=== PATIENT | female | born 1970 | race Caucasian/White ===

== ENCOUNTER 2023-05-26 00:04 | Observation (INO) | payer MEDICAID, SELFPAY ==
[2023-05-26] VITALS (20 sets, daily range): BP systolic 161–243; BP diastolic 99–122; PULSE 60–112; RESP 15–20; TEMP 36.8–37.2; O2SAT 96–99; BMI 23.4; BMI 23.9
--- NOTE | 2023-05-26 00:17 | CT_ITS ---
PROCEDURE INFORMATION: Exam: CT Abdomen And Pelvis With Contrast Exam date and time: 05/26/2023 12:54 AM Age: 53 years old Clinical indication: Abdominal pain; Additional info: Abd pain n/v TECHNIQUE: Imaging protocol: Computed tomography of the abdomen and pelvis with contrast. Radiation optimization: All CT scans at this facility use at least one of these dose optimization techniques: automated exposure control; mA and/or kV adjustment per patient size (includes targeted exams where dose is matched to clinical indication); or iterative reconstruction. Contrast material: ISOVUE; Contrast volume: 75 ml; Contrast route: IV; COMPARISON: INPATIENT PHARMACIST/O MRI-L-SPINE W/O 11/15/2016 9:51 AM FINDINGS: Liver: Geographic area of hypoattenuation in the medial segment of the left lobe of the liver compatible with focal fatty infiltration. Liver is otherwise unremarkable. Gallbladder and bile ducts: Normal. No calcified stones. No ductal dilation. Pancreas: Normal. No ductal dilation. Spleen: Normal. No splenomegaly. Adrenal glands: Normal. No mass. Kidneys and ureters: Normal. No hydronephrosis. Stomach and bowel: Unremarkable. No obstruction. No mucosal thickening. Appendix: The appendix is visualized and appears normal. Intraperitoneal space: Unremarkable. No free air. No significant fluid collection. Vasculature: Mild scattered atherosclerotic calcification of the aorta. No evidence of aneurysm or dissection. Moderate findings of pelvic venous congestion. Lymph nodes: Unremarkable. No enlarged lymph nodes. Urinary bladder: Unremarkable as visualized. Reproductive: 2.1 cm thin-walled simple right ovarian cyst compatible with a benign follicular cyst. Uterus and left ovary appear unremarkable. Bones/joints: Severe degenerative disc changes at the lumbosacral junction producing moderate narrowing of the bilateral L5 neural exit foramina. Osseous alignment is normal. No vertebral body compression or acute fracture. Soft tissues: Partially visualized bilateral breast implants. IMPRESSION: 1. No definite acute abnormality. 2. Simple appearing 2.1 cm right ovarian cyst. No further imaging is recommended. (Reference: Gil) 3. Significant degenerative changes of the lumbosacral spine References: Gil et al. Management of Incidental Adnexal Findings on CT and MRI: A White Paper of the ACR Incidental Findings Committee, J Am Cher Radiol. 2019;17(2):248-254.
--- NOTE | 2023-05-26 00:20 | ED_ITS ---
Discharge Plan Disposition Patient Disposition: Admitted Clinical Impressions Clinical Impression: Prerenal azotemia Abdominal pain Qualifiers: Abdominal location: upper abdomen, unspecified Qualified Code(s): R10.10 - Upper abdominal pain, unspecified Nausea & vomiting Qualifiers: Vomiting type: unspecified Qualified Code(s): R11.2 - Nausea with vomiting, unspecified Discharge ED Provider: Christiano Meneses Adult HPI General Chief complaint: Abdominal Pain Stated complaint: N/V Abdominal pain Time Seen by Provider: 05/26/23 00:11 Mode of Arrival: EMS Source of Information: Patient Limitations: No Limitations Description of Symptoms (Recalled from ER Triage Doc. by RN): Pt brought in via [email or web address] from home with c/o abdominal pain associated with N/V since 8am this morning. Pt last emesis episode 2 hr ago, pt states she thinks there may have been blood in it. Hx of GI bleed 10 yrs ago. Pt is hypertensive and on daily Propanolol. History of Present Illness HPI narrative: 53-year-old female with a history of high heart rate and anxiety presents to the ER with concerns of abdominal pain, nausea, vomiting since 8:00 this morning. Patient states she has vomited at least 20 times today. She is not sure if there may have been blood in it. Patient has a history of bleeding ulcers 10 years ago and states she had similar pain at that time. Patient states she does not drink alcohol but does use marijuana as recently as today which she states did slightly improve her pain. She is not having any bloody or black stools. Related Data Previous Rx's Medication Instructions Recorded hydrocodone 5 mg-acetaminophen 325 1 tab PO TID 30 days #90 tabs 06/14/17 mg tablet ([employer]) Allergies Allergy/AdvReac Type Severity Reaction Status Date / Time No Known Allergies Allergy Unverified 06/14/17 09:01 [facility] Disclaimer: The information contained in this section may have been updated after the patient was seen, as this information can be updated by other users. Medical History (Updated 05/26/23 @ 02:36 by Christiano Meneses MD) Depression Social History Smoking Status: Current every day smoker tobacco type: cigarettes packs per day: 1 alcohol intake: never substance use type: former substance user current occupational status: employed Travel in the last 8 weeks: None ROS Obtained: Yes All systems reviewed & no additional complaints except as documented Constitutional Constitutional: Denies chills, Denies fever(s), Denies headache(s) and Denies weakness Eyes Eyes: Denies change in vision ENT Ears, Nose, Mouth, and Throat: Denies dizziness, Denies headache(s), Denies nasal congestion and Denies sore throat Cardiovascular Cardiovascular: Denies chest pain, Denies dyspnea and Denies leg edema Respiratory Respiratory: Denies cough and Denies dyspnea Gastrointestinal Gastrointestingal: Reports abdominal pain, nausea and vomiting; Denies constipation or diarrhea Genitourinary Female Genitourinary: Denies dysuria Musculoskeletal Musculoskeletal: Denies arthralgias, Denies myalgias, Denies numbness and Denies tingling Integumentary/Breasts Skin/Breast: Denies change in pigmentation Neurologic Neurologic: Denies dizziness, Denies headache(s), Denies numbness, Denies tingling and Denies weakness Physical Exam General General appearance: alert and in no apparent distress Head Head exam: atraumatic and normocephalic Eye Eye exam: Present PERRL and EOMI ENT ENT exam: Present mucous membranes moist Neck Neck exam: Present normal inspection and full ROM Chest Chest inspection: Present symmetric chest wall rise Respiratory Respiratory exam: Absent respiratory distress or stridor Cardiovascular Cardiovascular exam: Present regular rate and normal rhythm Abdominal Exam Abdominal exam: Present soft and tenderness (Epigastric primarily but diffusely in the upper abdomen); Absent distention, guarding or rebound Extremities Exam Extremities exam: Present full ROM Neurological Exam Neurological exam: Present alert and oriented X3; Absent motor sensory deficit Psychiatric Psychiatric exam: Present normal affect and normal mood Skin Skin exam: Present warm and dry Medical Decision Making [place] Inquiry Pt receiving controlled substance: No Vital Signs: 05/26/23 00:04 05/26/23 02:23 05/26/23 01:00 Temperature 98.2 F Temperature Source Oral Pulse Rate 70 Pulse Rate [Left] 68 Respiratory Rate 16 18 Blood Pressure 243/100 H 239/119 H Blood Pressure [Right Arm] 189/115 H Blood Pressure Mean [Right Arm] 139 Blood Pressure Source Automatic Cuff Blood Pressure Source [Right Arm] Automatic Cuff Blood Pressure Position Sitting Blood Pressure Position [Right Arm] Sitting 02 Sat by Pulse Oximetry 99 99 Oxygen Delivery Method Room Air Room Air 05/26/23 01:15 05/26/23 01:30 05/26/23 02:00 Temperature 98.2 F Temperature Source Oral Pulse Rate 71 68 72 Pulse Rate [Left] Respiratory Rate 18 16 18 Blood Pressure 225/113 H 221/109 H 243/120 H Blood Pressure [Right Arm] Blood Pressure Mean [Right Arm] Blood Pressure Source Automatic Cuff Automatic Cuff Automatic Cuff Blood Pressure Source [Right Arm] Blood Pressure Position Sitting Sitting Sitting Blood Pressure Position [Right Arm] 02 Sat by Pulse Oximetry 98 97 98 Oxygen Delivery Method Room Air Room Air Room Air 05/26/23 02:25 Temperature Temperature Source Pulse Rate 73 Pulse Rate [Left] Respiratory Rate 15 Blood Pressure 169/101 H Blood Pressure [Right Arm] Blood Pressure Mean [Right Arm] Blood Pressure Source Automatic Cuff Blood Pressure Source [Right Arm] Blood Pressure Position Sitting Blood Pressure Position [Right Arm] 02 Sat by Pulse Oximetry 98 Oxygen Delivery Method Room Air Lab Data Lab Results 05/26/23 00:21: WBC 11.2 H, RBC 5.28, Hgb 15.5, Hct 48.0 H, MCV 91.0, MCH 29.4, MCHC 32.3, RDW 13.2, Plt Count 255, MPV 8.1, Neut % (Auto) 90.0 H, Lymph % (Auto) 7.3 L, [place] % (Auto) 1.6 L, Eos % (Auto) 0.4, Baso % (Auto) 0.8, Neut # (Auto) 10.1 H, Lymph # (Auto) 0.8, [place] # (Auto) 0.2, Eos # (Auto) 0.0, Baso # (Auto) 0.1, Total Counted 100, Neutrophils % (Manual) 89 H, Lymphocytes % (Manual) 10, Basophils % (Manual) 1.0, Platelet Estimate Normal, RBC Morphology Not Reportable, Stomatocytes 1+, PT 11.3, INR 1.05, Sodium 142, Potassium 3.5, Chloride 100, Carbon Dioxide 31 H, Anion Gap 14.5, BUN 24 H, Creatinine 1.00, Estimated Creat Clear 57, Estimated GFR 58 L, Est GFR ( Amer) 70, Glucose 176 H, Lactate 2.1, Calcium 9.8, Total Bilirubin 0.5, AST 32, ALT 28, Alkaline Phosphatase 128 H, Troponin I < 0.01, Total Protein 9.4 H, Albumin 4.7, Globulin 4.7 H, Albumin/Globulin Ratio 1.0 L, Lipase 54 05/26/23 01:10: Urine Color Yellow, Urine Appearance Clear, Urine pH 7.0, Ur Specific [place] 1.020, Urine Protein 2+, Urine Glucose (UA) Negative, Urine Ketones 2+, Urine Blood Negative, Urine Nitrate Negative, Urine Bilirubin 1+ A, Urine Urobilinogen 0.2, Ur Leukocyte Esterase Negative, Urine RBC None, Urine WBC Occasional, Ur Squamous Epith Cells Occasional, Urine Bacteria Trace, Urine Mucus Trace 05/26/23 00:21 05/26/23 00:21 Orders (Tests/Meds): ED MEDICATIONS Generic Name Dose Route Start Last Admin Trade Name Freq PRN Reason Stop Dose Admin Sodium Chloride 10 ml 05/26/23 01:00 05/26/23 01:01 Sodium Chloride 0.9% 10ml Syr (Rad Only) IV 06/25/23 00:59 10 ml NEEDED PRN Administration Maintain IV Site Sodium Chloride 10 ml 05/26/23 01:58 05/26/23 01:59 Sodium Chloride 0.9% 10ml Syr (Rad Only) IV 06/25/23 01:57 10 ml NEEDED PRN Administration Maintain IV Site Discontinued Medications Generic Name Dose Route Start Last Admin Trade Name Freq PRN Reason Stop Dose Admin Belladonna Alkaloids 60 ml 05/26/23 01:10 05/26/23 01:16 Belladonna Alkaloids 60 Ml Ml PO 05/26/23 01:11 60 ml ONCE ONE Administration Droperidol 2.5 mg 05/26/23 02:28 Droperidol 5mg/2ml Vial IV 05/26/23 02:29 ONCE ONE Hydromorphone HCl 0.5 mg 05/26/23 01:25 05/26/23 01:30 Hydromorphone 2mg/Ml Syringe IV 05/26/23 01:26 0.5 mg ONCE ONE Administration Lactated Ringer's 1,000 mls @ 999 mls/hr 05/26/23 00:17 05/26/23 00:24 Lactated Ringer's 1000 Ml Bag IV 05/26/23 01:17 999 mls/hr .Q1H1M ONE Administration Iopamidol 75 ml 05/26/23 01:00 05/26/23 01:01 Iopamidol-370 (76%);100ml Bottle IV 05/26/23 01:01 75 ml ONCE ONE Administration Iopamidol 100 ml 05/26/23 01:58 05/26/23 01:59 Iopamidol-370 (76%);100ml Bottle IV 05/26/23 01:59 100 ml ONCE ONE Administration Labetalol HCl 10 mg 05/26/23 02:18 05/26/23 02:23 Labetalol 20mg/4ml Syringe IV 05/26/23 02:19 10 mg ONCE ONE Administration Metoclopramide HCl 10 mg 05/26/23 01:23 05/26/23 01:31 Metoclopramide Hcl 10mg/2ml Vial IVP 05/26/23 01:24 10 mg ONCE ONE Administration Morphine Sulfate 4 mg 05/26/23 00:17 05/26/23 00:24 Morphine 4mg/Ml Syringe IV 05/26/23 00:18 4 mg ONCE ONE Administration Morphine Sulfate 4 mg 05/26/23 01:10 05/26/23 01:17 Morphine 4mg/Ml Syringe IV 05/26/23 01:11 4 mg ONCE ONE Administration Ondansetron HCl 4 mg 05/26/23 00:17 05/26/23 00:23 Ondansetron 4mg/2ml Vial IV 05/26/23 00:18 4 mg ONCE ONE Administration ORDERS Category Date Time Status CT abdomen pelvis w con Stat Cat Scan 05/26/23 00:[address] angio abdomen pelvis Stat Cat Scan 05/26/23 01:20 Completed CBC w/Auto Diff [Complete Blood Count Auto Diff] Stat Lab 05/26/23 00:21 Completed CMP [Comprehensive Metabolic Panel] Stat Lab 05/26/23 00:21 Completed Lactic Acid Stat Lab 05/26/23 00:21 Completed Lactic Acid Stat Lab 05/26/23 02:03 Ordered Lipase Stat Lab 05/26/23 00:21 Completed PT INR [Prothrombin Time INR] Stat Lab 05/26/23 00:21 Completed Trop I [Troponin I] Stat Lab 05/26/23 00:21 Completed Troponin I Q3H Lab 05/26/23 03:30 Ordered Troponin I Q3H Lab 05/26/23 06:30 Ordered Urinalysis and Microscopic Stat Lab 05/26/23 01:10 Completed ECG Request Stat Y 05/26/23 00:24 Ordered Medical Decision Narrative: In summary, this 53year old female presents to the emergency department today with abdominal pain, nausea, vomiting. On initial evaluation patient is hemodynamically stable, afebrile, patient has a nonacute abdomen but she does have upper abdominal tenderness, cardiopulmonary exam benign, remainder of exam benign. Differential diagnosis includes but is not limited to viral syndrome, pancreatitis, bowel obstruction, lactic acidosis, electrolyte abnormality, dehydration, urinary tract infection, atypical presentation of ACS. Based on these concerns, I ordered cardiac workup, basic labs, urine studies, CT abdomen pelvis. ECG personally interpreted demonstrates normal sinus rhythm, rate 70, normal axis, VA 206, normal QT/QTc, no STEMI. Patient received IV morphine, Zofran, fluids for treatment. Labs personally reviewed demonstrate findings of dehydration with mild prerenal azotemia, lactate borderline elevated at 2.1, no electrolyte abnormalities, patient does have elevated alkaline phosphatase but no focal right upper quadrant tenderness, normal AST and ALT, UA negative for signs of infection. Lipase normal. CT abdomen pelvis personally interpreted demonstrates no obvious obstruction, no peripancreatic fast stranding, see radiology read for final interpretation. Patient does have a right adnexal cyst which has been persistently present. She states sometimes the cyst gives her problems but it is not giving her any issues today, she does not have any complaints of pelvic pain. Shortly after returning from CT, patient continued complaining of pain and received additional morphine, given concern for possible ulcer, I administered GI cocktail. Patient promptly had projectile emesis which was bilious in color. On further questioning of the patient, she admitted to a prior history of atrial fibrillation and states she is not on any blood thinners. This does increase the risk of patient having mesenteric ischemia which I do not have high suspicion for previously because she stated she had no other medical conditions. Given concern for this, I am sending the patient back to CT scan for CT angiography. Patient is also receiving IV Dilaudid and Reglan. Patient's IV access was insufficient for CTA so I placed L bicep USGIV. See procedure note. CTA abdomen pelvis demonstrates no dissection, no obvious occlusion on my personal interpretation. See radiology read for final interpretation which is in agreement. Blood pressure increased persistently through her stay in the ED, she became significantly hypertensive so I administered IV labetalol. She responded appropriately to this. On reassessment patient continues having intractability of abdominal symptoms. She is receiving droperidol for consideration of possible cannabis hyperemesis syndrome. Ultimately, patient requires admission because of intractability of symptoms. She is amenable to this plan. I discussed this case with the hospitalist. He was concerned about the adnexal cyst, however I relayed my discussion with the patient regarding it how she does not have any pelvic pain, she has mild diffuse abdominal tenderness but primarily her symptoms are in the epigastric region and she states this pain does not feel consistent with the pain that her cyst has caused in the past nor does it originate from that area of her abdomen. Patient was accepted by the hospitalist and admitted in stable condition. Procedures Miscellaneous Procedure Procedure Performed: Procedure: Ultrasound-guided IV Indication: Need for IV access Consent: Verbal provided by patient, risks include need for repeat procedure, bleeding, infection, pain, damage to surrounding structures, benefits include additional IV access and ability to testing and provided medications. Procedure details: 20-gauge ultrasound IV placed in the left bicep. Draws and flushes. Secured with Tegaderm. Patient tolerated procedure well. No complications. Critical Care Critical Care Time Critical Care Time: No
[2023-05-26] MEDS: ONDANSETRON 4MG/2ML VIAL 4 MG IV (00:23)
[2023-05-26] MEDS: MORPHINE 4MG/ML SYRINGE 4 MG IV ×5 (00:24→19:52)
[2023-05-26] MEDS: LACTATED RINGERS 1000ML 1,000 ML 999 ML IV (00:24)
[2023-05-26 00:31] LABS: Basophils # 0.1 K/mm3 (0-0.2); Basophils % 0.8 % (0.1-2.0); Eosinophils % 0.4 % (0.1-12.0); Hemoglobin 15.5 g/dL (12.2-16.2); Lymphocytes # 0.8 K/mm3 (0.7-4.5); Lymphocytes % 7.3 % (10-50); Mean Corpuscular HGB Conc 32.3 g/dL (31.8-35.4); Mean Corpuscular Hemoglobin 29.4 pg (27.0-31.2); Mean Platelet Volume 8.1 fl (7.4-10.4); Monocytes # 0.2 K/mm3 (0.1-1.0); Monocytes % 1.6 % (1.7-9.3); Neutrophils # 10.1 K/mm3 (1.8-7.8); Platelet Count 255 K/mm3 (142-424); Red Blood Count 5.28 M/mm3 (4.20-5.40); Red Cell Distribution Width 13.2 % (11.5-17.5); White Blood Count 11.2 K/mm3 (4.8-10.8)
[2023-05-26 00:34] LABS: MANUAL DIFFERENTIAL MANUAL DIFFERENTIAL (MANUAL DIFF)
[2023-05-26 00:38] LABS: INR 1.05 (0.9-1.1); Prothrombin Time 11.3 seconds (10.1-12.5)
--- NOTE | 2023-05-26 00:39 | ECG_ITS ---
APPROVED REPORT Exam: Resting ECG HR:70 bpm ECG Measurements Heart Rate 70 AXES MT 206 P 71 QRSd 95 QRS 67 QT 408 T 67 QTc 429 Conclusion SINUS RHYTHM NORMAL ECG UNCONFIRMED REPORT Electronically signed by : Harley Sarmiento, 06/02/2023 15:45:12
[2023-05-26 00:44] LABS: Chloride 100 mmol/L (98-107); Potassium 3.5 mmoL/L (3.5-5.1); Sodium 142 mmol/L (136-145)
[2023-05-26 00:47] LABS: Alanine Aminotransferase 28 U/L (12-78); Albumin Level 4.7 g/dl (3.5-5.0); Alkaline Phosphatase 128 U/L (38-126); Anion Gap 14.5 mEq/L (5-15); Aspartate Amino Transferase 32 U/L (14-36); Bilirubin,Total 0.5 mg/dl (0.2-1.3); Blood Urea Nitrogen 24 mg/dl (7-17); Calcium 9.8 mg/dl (8.4-10.2); Carbon Dioxide 31 mmol/L (22.0-30.0); Creatinine Clearance Estimated 57 mL/min (50-200); Estimated Glomerular Filt Rate 58 ml/min (>60); GFR (African American) 70 ML/MIN (>60); Globulin 4.7 g/dL (1.3-3.2); Glucose 176 mg/dl (74-100); Lipase 54 U/L (23-300); Total Protein,Serum 9.4 g/dl (6.3-8.2)
[2023-05-26 00:48] LABS: Lactic Acid 2.1 mmol/L (0.7-2.1)
[2023-05-26] MEDS: IOPAMIDOL-370 (76%);100ML BOTTLE 75 ML IV (01:01)
[2023-05-26] MEDS: SODIUM CHLORIDE 0.9% 10ML SYR (RAD ONLY) 10 ML IV ×2 (01:01→01:59)
[2023-05-26 01:06] LABS: Troponin I < 0.01 ng/ml (0.00-0.034)
[2023-05-26 01:16] LABS: Microscopic, Urine URINE MICROSCOPIC (MICROSCOPIC)
[2023-05-26] MEDS: BELLADONNA ALKALOIDS 60 ML ML PO (01:16)
[2023-05-26 01:17] LABS: Appearance,Urine CLEAR (Clear); Blood, Urine Negative (Negative); Color,Urine YELLOW (Yellow); Glucose,Urine (UA) Negative (Negative); Ketones,Urine 2+ (Negative); Leukocyte Esterase,Urine Negative (Negative); Nitrate,Urine Negative (Negative); Protein,Urine 2+ (Negative); Urobilinogen,Urine 0.2 EU/dl (0.2)
--- NOTE | 2023-05-26 01:20 | CT_ITS ---
PROCEDURE INFORMATION: Exam: CTA Abdomen and Pelvis With Contrast Exam date and time: 05/26/2023 1:52 AM Age: 53 years old Clinical indication: Abdominal pain; Additional info: Bilious emesis, afib, intractable abd pain TECHNIQUE: Imaging protocol: Computed tomographic angiography of the abdomen and pelvis with contrast. Exam focused on the arteries. 3D rendering (Not supervised by radiologist): MIP and/or 3D reconstructed images were created by the technologist. Radiation optimization: All CT scans at this facility use at least one of these dose optimization techniques: automated exposure control; mA and/or kV adjustment per patient size (includes targeted exams where dose is matched to clinical indication); or iterative reconstruction. Contrast material: ISOVUE; Contrast volume: 100 ml; Contrast route: INTRAVENOUS (IV); COMPARISON: CT ABDOMEN PELVIS W CON 05/26/2023 12:54 AM FINDINGS: Lungs: There is gravity dependent streaky subsegmental atelectasis at the lung bases. Aorta: The abdominal aorta is normal in course and caliber with scattered calcific atheromatous plaque. Celiac trunk and mesenteric arteries: No occlusion or significant stenosis. Renal arteries: No occlusion or significant stenosis. Right iliac arteries: No occlusion or significant stenosis. Left iliac arteries: No occlusion or significant stenosis. Liver: No mass. Gallbladder and bile ducts: Unremarkable. No calcified stones. No ductal dilation. Pancreas: Unremarkable. No mass. No ductal dilation. Spleen: Unremarkable. No splenomegaly. Adrenal glands: Unremarkable. No mass. Kidneys and ureters: The kidneys enhance and excrete contrast symmetrically there is no hydronephrosis. Stomach and bowel: There is no evidence for small bowel obstruction. Appendix: No evidence of appendicitis. Intraperitoneal space: Unremarkable. No free air. No significant fluid collection. Lymph nodes: Unremarkable. No enlarged lymph nodes. Urinary bladder: High density within the bladder likely represents excreted intravenous contrast. Reproductive: A 22 x 20 mm cyst is noted in the right adnexa not significantly changed from the prior examination. Bones/joints: Degenerative changes are noted in the bones. Soft tissues: Bilateral breast implants are incompletely imaged. IMPRESSION: No evidence for contrast extravasation. No evidence for vascular stenosis or occlusion. Unchanged 22 mm right adnexal cyst.
[2023-05-26 01:24] LABS: Bilirubin,Urine 1+ (Negative)
[2023-05-26 01:25] LABS: Bacteria,Urine Trace /lpf; Mucus,Urine Trace /lpf; Squamous Epithelial Cell,Urine Occasional #/hpf (0-5); WBC,Urine Occasional #/hpf (0-3)
[2023-05-26] MEDS: HYDROMORPHONE 2MG/ML SYRINGE 0.5 MG IV (01:30)
[2023-05-26] MEDS: METOCLOPRAMIDE HCL 10MG/2ML VIAL 10 MG IVP ×5 (01:31→21:10)
[2023-05-26 01:32] LABS: Lymphocytes % 10 % (10-50); Neutrophils % 89 % (42-76); Total Cells Counted 100
--- NOTE | 2023-05-26 01:32 | PC.NURSE ---
at bedside placing US guided IV
[2023-05-26 01:33] LABS: Platelet Estimate Normal; Stomatocytes 1+
[2023-05-26] MEDS: IOPAMIDOL-370 (76%);100ML BOTTLE 100 ML IV (01:59)
[2023-05-26] MEDS: LABETALOL 20MG/4ML SYRINGE 10 MG IV (02:23)
--- NOTE | 2023-05-26 02:33 | PC.NURSE ---
ED doc on phone with hospitalist
--- NOTE | 2023-05-26 02:36 | PC.NURSE ---
call placed to house for bed assignment: intractible n/v; abd pain,hospitalist and informed she needs a monitored bed d/t droperidol.
[2023-05-26] MEDS: droPERidol 5MG/2ML VIAL 2.5 MG IV (02:42)
--- NOTE | 2023-05-26 02:42 | P.HP_ITS ---
History of Present Illness *Admission Date: 05/26/23 *Reason for visit:: N/V/abd pain *History of present illness: This is 53-year-old female with a history of HTN, and anxiety presented to the ER with concerns of abdominal pain, nausea, vomiting since 8:00 this morning. Patient states she has vomited at least 20 times today. She is not sure if there may have been blood in it. Patient has a history of bleeding ulcers 10 years ago and states she had similar pain at that time. Patient states she does not drink alcohol but does use marijuana as recently as today which she states did slightly improve her pain. She is not having any bloody or black stools. Admitted for treatment [facility] Disclaimer: The information contained in this section may have been updated after the polo nt was seen, as this information can be updated by other users. Medical History (Updated 05/26/23 @ 04:07 by Travon Aponte APRN) Depression Social History (Updated 05/26/23 @ 03:43 by Adriana Verduzco RN) Smoking Status: Current every day smoker tobacco type: cigarettes packs per day: 1 alcohol intake: never substance use type: former substance user current occupational status: employed Travel in the last 8 weeks: None Review of Systems Review of Systems Review of systems:: pertinent systems reviewed and negative unless documented below Constitutional Constitutional: Denies headache(s) and Denies weakness ENT Ears, Nose, Mouth, and Throat: Denies dizziness and Denies headache(s) *Musculoskeletal Musculoskeletal: Denies numbness and Denies tingling *Neurologic Neurologic: Denies dizziness, Denies headache(s), Denies numbness, Denies tingling and Denies weakness Meds Home Medications and Allergies Home Medications Medication Instructions Recorded Confirmed Type propranolol 20 mg tablet 20 mg PO TID High Blood Pressure 05/26/23 05/26/23 History New Prescriptions to Start Prescriptions: Allergies Allergy/AdvReac Type Severity Reaction Status Date / Time No Known Allergies Allergy Unverified 06/14/17 09:01 Exam Data for Last 24 hours Vital signs and Labs for Last 24 Hours: Temp Pulse Resp BP Pulse Ox O2 Del Method 98.2 F 73 15 169/101 H 98 Room Air 05/26/23 01:15 05/26/23 02:25 05/26/23 02:25 05/26/23 02:25 05/26/23 02:25 05/26/23 02:25 Laboratory Results - last 24 hr 05/26/23 00:21: WBC 11.2 H, RBC 5.28, Hgb 15.5, Hct 48.0 H, MCV 91.0, MCH 29.4, MCHC 32.3, RDW 13.2, Plt Count 255, MPV 8.1, Neut % (Auto) 90.0 H, Lymph % (Auto) 7.3 L, [place] % (Auto) 1.6 L, Eos % (Auto) 0.4, Baso % (Auto) 0.8, Neut # (Auto) 10.1 H, Lymph # (Auto) 0.8, [place] # (Auto) 0.2, Eos # (Auto) 0.0, Baso # (Auto) 0.1, Total Counted 100, Neutrophils % (Manual) 89 H, Lymphocytes % (Manual) 10, Basophils % (Manual) 1.0, Platelet Estimate Normal, RBC Morphology Not Reportable, Stomatocytes 1+, PT 11.3, INR 1.05, Sodium 142, Potassium 3.5, Chloride 100, Carbon Dioxide 31 H, Anion Gap 14.5, BUN 24 H, Creatinine 1.00, Estimated Creat Clear 57, Estimated GFR 58 L, Est GFR ( Amer) 70, Glucose 176 H, Lactate 2.1, Calcium 9.8, Total Bilirubin 0.5, AST 32, ALT 28, Alkaline Phosphatase 128 H, Troponin I < 0.01, Total Protein 9.4 H, Albumin 4.7, Globulin 4.7 H, Albumin/Globulin Ratio 1.0 L, Lipase 54 05/26/23 01:10: Urine Color Yellow, Urine Appearance Clear, Urine pH 7.0, Ur Specific [place] 1.020, Urine Protein 2+, Urine Glucose (UA) Negative, Urine Ketones 2+, Urine Blood Negative, Urine Nitrate Negative, Urine Bilirubin 1+ A, Urine Urobilinogen 0.2, Ur Leukocyte Esterase Negative, Urine RBC None, Urine WBC Occasional, Ur Squamous Epith Cells Occasional, Urine Bacteria Trace, Urine Mucus Trace I & O for Last 24 hours: Intake & Output 05/23/23 05/24/23 05/25/23 05/26/23 23:59 23:59 23:59 23:59 Weight 54.431 kg Constitutional Constitutional: moderate distress and cooperative *Routine HEENT Exam Head: Present normocephalic and atraumatic Eye: Present EOMI, PERRL and normal accommodation ENT: Present mucous membranes dry *Routine Neck Exam Neck: Present supple, full ROM and trachea midline *Routine Respiratory Exam Respiratory: Present CTA bilaterally, normal respiratory effort and symmetric chest movement; Absent respiratory distress *Routine Cardiovascular Exam Cardiovascular: Present RRR, Normal S1 and Normal S2 *Routine Abdominal Exam Abdominal: Present soft, normoactive bowel sounds and tenderness; Absent distended or organomegaly *Routine Rectal Exam Rectal:: deferred *Routine Genitalia Exam Genitalia:: deferred *Routine Extremities Exam Extremities: Present full ROM and pulses intact; Absent cyanosis, clubbing or edema *Routine Skin Exam Skin: Present intact and warm; Absent erythema or rash *Routine Neurological Exam Neurological: Present alert, oriented X3, normal reflexes, moving all extremities and normal speech Routine Psychiatric Exam Psychiatric: Present cooperative, good judgment and depressed H&P: Result Imaging and Cardiology CT scan - abdomen: Status: image reviewed by me, Preliminary report and final report Assessment and Plan *Assessment and plan (1) Abdominal pain: Status: Acute Qualifiers: Abdominal location: upper abdomen, unspecified Qualified Code(s): R1 0.10 - Upper abdominal pain, unspecified Category: Medical Code(s): R10.9 - Unspecified abdominal pain (2) Nausea & vomiting: Status: Acute Qualifiers: Vomiting type: unspecified Qualified Code(s): R11.2 - Nausea with vomiting, unspecified Category: Medical Code(s): R11.2 - Nausea with vomiting, unspecified (3) Cannabinoid hyperemesis syndrome: Status: Acute Category: Medical Code(s): R11.2 - Nausea with vomiting, unspecified; F12.90 - Cannabis use, unspecified, uncomplicated (4) Adnexal cyst: Status: Acute Category: Medical Code(s): N94.9 - Unspecified condition associated with female genital organs and menstrual cycle (5) Hypertension: Status: Acute Qualifiers: Hypertension type: unspecified Qualified Code(s): I10 - Essential (primary) hypertension Category: Medical Code(s): I10 - Essential (primary) hypertension Plan 3-year-old female with a history of HTN, and anxiety presented to the ER with concerns of abdominal pain, nausea, vomiting since 8:00 this morning. Patient states she has vomited at least 20 times today. Patient received IV morphine, Zofran, fluids for treatment. Labs demonstrate findings of dehydration with mild prerenal azotemia, lactate borderline elevated at 2.1, no electrolyte abnormalities, patient does have elevated alkaline phosphatase but no focal right upper quadrant tenderness, normal AST and ALT, UA negative for signs of infection. Lipase normal.CT abdomen pelvis personally interpreted demonstrates no obvious obstruction, no peripancreatic fast stranding, Imaging reviewed. Patient does have a right adnexal cyst which has been persistently present. She states sometimes the cyst gives her problems but it is not giving her any issues today, she does not have any complaints of pelvic pain. Plan as follow: -Epigastric abdominal pain, likely consistent with gastritis, secondary to intractable nausea and vomiting due to cannabinoid hyperemesis syndrome Admit patient for medical services. Started on IV fluid. Droperidol 1 dose given at the ER Continue pain management with morphine as needed . Protonix 40 mg IV Famotidine 20 mg IV twice daily Reglan 10 mg before meals Monitor vital signs per unit N.p.o.. May advance diet as tolerated Repeat labs in the morning. Watch for electrolyte imbalance -Adnexal cyst: Significantly grown from previous screening. Recommended outpatient follow-up with [facility] Hypertension: Uncontrolled. Patient on propranolol 20 mg 3 times daily 1 dose or lower level IV given Continue monitor Current smoker and marijuana use Lovenox for DVT prophylaxis. On Protonix Full code Attending attestation Patient was seen and evaluated at the bedside myself, agree with EL note.
--- NOTE | 2023-05-26 03:16 | PC.NURSE ---
Report called to Adriana MANCUSO #[id number] pt to go by wheelchair
[2023-05-26 03:53] LABS: Reflex Lactic Add Lactic Reflex
[2023-05-26] MEDS: 0.9 % SODIUM CHLORIDE 1000ML 1,000 ML 100 ML IV ×2 (03:54→14:42)
[2023-05-26] MEDS: LABETALOL 5MG/ML 20ML MDV 10 MG IV (03:58)
[2023-05-26] MEDS: SODIUM CHLORIDE 0.9% 10ML VIAL 8 ML IV ×2 (04:04→08:56)
[2023-05-26] MEDS: FAMOTIDINE 20MG/2ML VIAL 20 MG IV ×3 (04:04→21:10)
[2023-05-26] MEDS: PANTOPRAZOLE 40MG VIAL 40 MG IV ×2 (04:04→21:10)
[2023-05-26 05:04] LABS: Lactic Acid Follow Up (RFLX 1) 1.8 mmol/L (0.7-2.1)
[2023-05-26 05:05] LABS: Alanine Aminotransferase 24 U/L (12-78); Albumin Level 4.7 g/dl (3.5-5.0); Albumin/Globulin Ratio 1.1 (1.1-1.8); Alkaline Phosphatase 126 U/L (38-126); Aspartate Amino Transferase 31 U/L (14-36); Bilirubin,Total 0.5 mg/dl (0.2-1.3); Blood Urea Nitrogen 18 mg/dl (7-17); Calcium 9.6 mg/dl (8.4-10.2); Carbon Dioxide 31 mmol/L (22.0-30.0); Chloride 99 mmol/L (98-107); Creatinine Clearance Estimated 64 mL/min (50-200); Estimated Glomerular Filt Rate 66 ml/min (>60); GFR (African American) 80 ML/MIN (>60); Globulin 4.3 g/dL (1.3-3.2); Glucose 160 mg/dl (74-100); Sodium 143 mmol/L (136-145)
[2023-05-26 05:12] LABS: Basophils % 0.3 % (0.1-2.0); Eosinophils % 0.4 % (0.1-12.0); Hematocrit 48.5 % (37.0-47.0); Hemoglobin 16.1 g/dL (12.2-16.2); Lymphocytes # 0.9 K/mm3 (0.7-4.5); Lymphocytes % 10.6 % (10-50); Mean Corpuscular HGB Conc 33.2 g/dL (31.8-35.4); Mean Corpuscular Hemoglobin 30.3 pg (27.0-31.2); Mean Corpuscular Volume 91.3 fl (81-99); Mean Platelet Volume 7.8 fl (7.4-10.4); Monocytes # 0.3 K/mm3 (0.1-1.0); Neutrophils # 7.6 K/mm3 (1.8-7.8); Neutrophils % 85.7 % (37.0-80.0); Platelet Count 244 K/mm3 (142-424); Red Blood Count 5.31 M/mm3 (4.20-5.40); Red Cell Distribution Width 13.1 % (11.5-17.5); White Blood Count 8.9 K/mm3 (4.8-10.8)
[2023-05-26 05:18] LABS: Troponin I < 0.01 ng/ml (0.00-0.034)
[2023-05-26] MEDS: ENALAPRILAT 2.5MG/2ML VIAL 1.25 MG IV (06:48)
[2023-05-26] MEDS: KCl 20mEq/100ml 100 ML 50 MEQ IV (06:48)
--- NOTE | 2023-05-26 07:58 | CA_ITS ---
APPROVED REPORT EXAM: Comprehensive 2D, Doppler, and color-flow Echocardiogram Production Control Clerk: Xuan King RVT Ht: 4 ft 11 in Wt: 122lbs BSA: 1.49 BP: 069/101 mmHg Indications: HTN,SMOKER,VOMITING 2D Dimensions LA Volume 32.20 mL LA Volume Index 21.47 mL/m2 (M/F) 16-34 M-Mode Dimensions RVDd 1.69 cm (0.9-2.6) LA Diam 2.93 cm (1.9-4.0) LVDd 3.26 cm (3.5-5.7) LVDs 1.76 cm (3.5-5.7) IVSd 0.62 cm (0.6-1.1) PWd 0.77 cm (0.6-1.1) EF (Teich) 78.50% FS 46.00% EDV (Teich) 42.80 mL TAPSE 2.77 (<1.7) ESV (Teich) 9.20 mL LV Diastology E Decel Time 150 (160-240 msec) E/A Ratio 1.9 Aortic Valve RONI Index 1.40 cm2/m2 AoV Peak Pelon. 125.0 (50-130 cm/s) AO Peak GR. 6.20 mmHg AO Mean GR. 3.70 (<5 mmHg) AO VTI 27.9 (18-25 cm) RONI (VTI) 2.14 (2.5-4.5 cm2) Mitral Valve MV E Max Pelon. 105.0 (40-130 cm/s) MV A Velocity 55.0 (40-130 cm/s) E/A Ratio 1.91 MV PHT 44.0 ms Pulmonary Valve PV Peak Velocity 95.0 (50-150 cm/s) Tricuspid Valve TR P. Velocity 210.00 cm/s RAP Estimate 10.00 mmHg RVSP 27.70 mmHg Left Ventricle The left ventricle is normal size. The left ventricular systolic function is normal. The left ventricular ejection fraction is within the normal range. There is normal left ventricular wall thickness. There is normal LV segmental wall motion. The left ventricular diastolic function is normal. LVEF is 65%. Right Ventricle The right ventricle is normal size. The right ventricular systolic function is normal. Atria The left atrium size is normal. The right atrium size is normal. There is no Doppler evidence of interatrial shunt. Aortic Valve The aortic valve is normal in structure. There is no aortic valvular stenosis. No aortic regurgitation is present. Mitral Valve The mitral valve is normal in structure. No evidence of mitral valve stenosis. There is no mitral valve regurgitation noted. Tricuspid Valve The tricuspid valve leaflets are thin and pliable. Trace tricuspid regurgitation. There is insufficient TR jet to estimate RVSP. Pulmonic Valve The pulmonary valve is normal in structure. Trace pulmonic regurgitation. Great Vessels The aortic root is normal in size. The ascending aorta is not well-visualized. IVC is normal in size and collapses >50% with inspiration. Pericardium There is no pericardial effusion. Other Information Study Quality: Fair Conclusion Normal biventricular systolic function. No significant valvular stenosis or regurgitation. Electronically signed by : Carmela Murphy MD 05/26/2023 12:59:47
[2023-05-26] MEDS: AMLODIPINE 10MG TABLET 10 MG PO (08:56)
[2023-05-26] MEDS: cloNIDine 0.2MG TABLET 0.200000000000000011 MG PO (08:56)
[2023-05-26] MEDS: POTASSIUM CHLORIDE 20MEQ TAB 20 MEQ PO ×3 (10:15→21:10)
[2023-05-26 10:38] LABS: Free Thyroxine Index 3.7 ug/dL (5.93-13.13); T4 (Thyroxine) 12.2 ug/dl (5.53-11.0); Triiodothryronine (T3) Uptake 30 % (23.5-40.5)
--- NOTE | 2023-05-26 10:38 | P.CONCA_ITS ---
History of Present Illness History of Present Illness Consult date: 05/26/23 Requesting physician: Marita Cruz Consult reason: hypertension Chief complaint: N/V, HTN Additional Medical History:: 1. Hypertension, treated for many years 2. Regular marijuana use 3. Tobacco use 4. Remote history of bleeding ulcer 10 years ago History of present illness: This is 53-year-old female with a history of HTN, and anxiety presented to the ER with concerns of abdominal pain, nausea, vomiting since 8:00 this morning. Patient states she has vomited at least 20 times today. She is not sure if there may have been blood in it. Patient has a history of bleeding ulcers 10 years ago and states she had similar pain at that time. Patient states she does not drink alcohol but does use marijuana as recently as today which she states did slightly improve her pain. She is not having any bloody or black stools. Admitted for treatment. The above per Travon Aponte APRN for the hospitalist service Events as noted above confirmed with the patient. She denies any chest pain, pressure or tightness. Patient denies any history of thyroid issues but does states she has periodic elevations of blood pressure without a common timing or origin. Abdominal and pelvis CT was negative for any adrenal masses. Abdominal and pelvis CTA showed no evidence of renal artery stenosis. Hemoglobin is normal at 16 BUN slightly elevated at 18 with normal creatinine Troponins normal Preliminary echocardiogram shows hyperdynamic function EKG is sinus rhythm with no acute ST segment changes [facility] Disclaimer: The information contained in this section may have been updated after the p rakesh was seen, as this information can be updated by other users. Medical History (Updated 05/26/23 @ 04:07 by Travon Aponte APRN) Depression Social History (Updated 05/26/23 @ 03:43 by Adriana Verduzco RN) Smoking Status: Current every day smoker tobacco type: cigarettes packs per day: 1 alcohol intake: never substance use type: former substance user current occupational status: employed Travel in the last 8 weeks: None Review of Systems Constitutional Constitutional: Denies headache(s), Denies snoring and Denies weakness ENT Ears, Nose, Mouth, and Throat: Denies dizziness and Denies headache(s) *Cardiovascular Cardiovascular: Denies chest pain and Denies dyspnea *Respiratory Respiratory: Denies dyspnea and Denies snoring *Gastrointestinal Gastrointestinal: Reports vomiting *Musculoskeletal Musculoskeletal: Denies numbness and Denies tingling *Neurologic Neurologic: Denies dizziness, Denies headache(s), Denies numbness, Denies tingling and Denies weakness Exam Data for Last 24 hours Vital signs and Labs for Last 24 Hours: Temp Pulse Resp BP Pulse Ox O2 Del Method 98.3 F 74 18 185/113 H 98 Room Air 05/26/23 08:00 05/26/23 09:26 05/26/23 08:00 05/26/23 08:00 05/26/23 08:00 05/26/23 08:14 Laboratory Results - last 24 hr 05/26/23 00:21: WBC 11.2 H, RBC 5.28, Hgb 15.5, Hct 48.0 H, MCV 91.0, MCH 29.4, MCHC 32.3, RDW 13.2, Plt Count 255, MPV 8.1, Neut % (Auto) 90.0 H, Lymph % (Auto) 7.3 L, [place] % (Auto) 1.6 L, Eos % (Auto) 0.4, Baso % (Auto) 0.8, Neut # (Auto) 10.1 H, Lymph # (Auto) 0.8, [place] # (Auto) 0.2, Eos # (Auto) 0.0, Baso # (Auto) 0.1, Total Counted 100, Neutrophils % (Manual) 89 H, Lymphocytes % (Manu al) 10, Basophils % (Manual) 1.0, Platelet Estimate Normal, RBC Morphology Not Reportable, Stomatocytes 1+, PT 11.3, INR 1.05, Sodium 142, Potassium 3.5, Chloride 100, Carbon Dioxide 31 H, Anion Gap 14.5, BUN 24 H, Creatinine 1.00, Estimated Creat Clear 57, Estimated GFR 58 L, Est GFR ( Amer) 70, Glucose 176 H, Lactate 2.1, Calcium 9.8, Total Bilirubin 0.5, AST 32, ALT 28, Alkaline Phosphatase 128 H, Troponin I < 0.01, Total Protein 9.4 H, Albumin 4.7, Globulin 4.7 H, Albumin/Globulin Ratio 1.0 L, Lipase 54 05/26/23 01:10: Urine Color Yellow, Urine Appearance Clear, Urine pH 7.0, Ur Specific [place] 1.020, Urine Protein 2+, Urine Glucose (UA) Negative, Urine Ketones 2+, Urine Blood Negative, Urine Nitrate Negative, Urine Bilirubin 1+ A, Urine Urobilinogen 0.2, Ur Leukocyte Esterase Negative, Urine RBC None, Urine WBC Occasional, Ur Squamous Epith Cells Occasional, Urine Bacteria Trace, Urine Mucus Trace 05/26/23 04:20: WBC 8.9, RBC 5.31, Hgb 16.1, Hct 48.5 H, MCV 91.3, MCH 30.3, MCHC 33.2, RDW 13.1, Plt Count 244, MPV 7.8, Neut % (Auto) 85.7 H, Lymph % (Auto) 10.6, [place] % (Auto) 3.0, Eos % (Auto) 0.4, Baso % (Auto) 0.3, Neut # (Auto) 7.6, Lymph # (Auto) 0.9, [place] # (Auto) 0.3, Eos # (Auto) 0.0, Baso # (Auto) 0.0, Sodium 143, Potassium 3.0 L, Chloride 99, Carbon Dioxide 31 H, Anion Gap 16.0 H, BUN 18 H, Creatinine 0.90, Estimated Creat Clear 64, Estimated GFR 66, Est GFR ( Amer) 80, Glucose 160 H, Lactate 1.8, Calcium 9.6, Magnesium 2.0, Total Bilirubin 0.5, AST 31, ALT 24, Alkaline Phosphatase 126, Troponin I < 0.01, Total Protein 9.0 H, Albumin 4.7, Globulin 4.3 H, Albumin/Globulin Ratio 1.1 I & O for Last 24 hours: Intake & Output 05/23/23 05/24/23 05/25/23 05/26/23 11:59 11:59 11:59 11:59 Weight 122 lb Constitutional Constitutional: no acute distress *Routine Respiratory Exam Respiratory: Present CTA bilaterally *Routine Cardiovascular Exam Cardiovascular: Present RRR *Routine Extremities Exam Extremities: Absent edema *Routine Neurological Exam Neurological: Present alert, oriented X3 and CN II-XII intact Meds Home Medications and Allergies Home Medications Medication Instructions Recorded Confirmed Type propranolol 20 mg tablet 20 mg PO TID High Blood Pressure 05/26/23 05/26/23 History New Prescriptions to Start Prescriptions: Allergies Allergy/AdvReac Type Severity Reaction Status Date / Time No Known Allergies Allergy Unverified 06/14/17 09:01 Assessment and Plan *Assessment and plan (1) Hypertension: Status: Acute Qualifiers: Hypertension type: unspecified Qualified Code(s): I10 - Essential (primary) hypertension Category: Medical Code(s): I10 - Essential (primary) hypertension (2) Nausea & vomiting: Status: Acute Qualifiers: Vomiting type: unspecified Qualified Code(s): R11.2 - Nausea with vomiting, unspecified Category: Medical Code(s): R11.2 - Nausea with vomiting, unspecified Plan 1. Nausea and vomiting of unknown etiology -No hematemesis -Prior history of ulcers -Defer to hospitalist 2. Hypertension -No evidence of adrenal mass or renal artery stenosis on CT scans -Will check renin and aldosterone levels along with thyroid panel -Plan to start lisinopril 20 mg daily and low-dose HCTZ and spironolactone -Echo shows normal EF with no significant valve disease 3. Hypokalemia -Continue replacement Further recommendations to follow pending above results Please call over the weekend if needed.
[2023-05-26] MEDS: ENOXAPARIN 40MG/0.4ML SYRINGE 40 MG SQ (10:50)
[2023-05-26 10:52] LABS: Thyroid Stimulating Hormone 0.53 uIU/mL (0.465-4.68)
[2023-05-26 13:33] LABS: Troponin I 0.01 ng/ml (0.00-0.034)
[2023-05-26] MEDS: hydroCHLOROthiazide 12.5MG CAPSULE 12.5 MG PO (14:57)
[2023-05-26] MEDS: SPIRONOLACTONE 25MG TABLET 12.5 MG PO (14:58)
[2023-05-26] MEDS: LISINOPRIL 20MG TABLET 20 MG PO (14:58)
--- NOTE | 2023-05-26 18:05 | PC.NURSE ---
PT IS RESTING IS BED. ALERT AND ORIENTED X4. APPETITE HAS BEEN POOR THIS SHIFT. BP CONTINUES TO BE ELEVATED. MEDICATED PER MAR FOR ABDOMINAL DISCOMFORT. PT HAS TOLERATED CLEAR LIQUIDS THIS SHIFT. LUNG SOUNDS DIMINISHED. ABDOMEN SOFT WITH ACTIVE BOWEL SOUNDS. NO SWELLING NOTED TO BLE. AMBULATES TO THE BATHROOM. WILL CONTINUE TO MONITOR.
[2023-05-26] MEDS: NIFEdipine XL 30MG TABLET 60 MG PO (19:53)
[2023-05-27] VITALS: BP 168/103; PULSE 120; PULSE 123; RESP 16; TEMP 36.6; O2SAT 98
[2023-05-27] MEDS: MORPHINE 4MG/ML SYRINGE 4 MG IV ×2 (00:58→05:28)
[2023-05-27] MEDS: 0.9 % SODIUM CHLORIDE 1000ML 1,000 ML 100 ML IV ×2 (00:59)
--- NOTE | 2023-05-27 03:09 | PC.NURSE ---
PATIENT HAS RECEIVED MORPHINE 4 MG IVP TWICE SO FAR ON THIS SHIFT FOR UPPER ABDOMINAL PAIN RATED 7/10 AND DESCRIBED CRAMPING BURNING. GOOD BOWEL SOUNDS NOTED. PATIENT COMPLAINS THAT HER ABDOMEN IS TENDER WITH PALPATION. THER HAS BEEN NO VOMITING THIS SHIFT. FAMILY MEMBER SLEEPING AT THE BEDSIDE. HEART RATE CLIMBS INTO THE 140s WITH ACTIVITY. BPs CONT TO BE ELEVATED.
[2023-05-27 04:00] VITALS: BP 147/107; PULSE 121; PULSE 97; RESP 16; TEMP 36.6; O2SAT 98; BMI 25.2
[2023-05-27] MEDS: METOCLOPRAMIDE HCL 10MG/2ML VIAL 10 MG IVP (05:22)
[2023-05-27 08:00] VITALS: BP 152/106; PULSE 102; PULSE 98; RESP 16; TEMP 36.7; O2SAT 97
[2023-05-27] MEDS: SODIUM CHLORIDE 0.9% 10ML VIAL 8 ML IV (08:17)
[2023-05-27] MEDS: FAMOTIDINE 20MG/2ML VIAL 20 MG IV (08:18)
[2023-05-27] MEDS: hydroCHLOROthiazide 12.5MG CAPSULE 12.5 MG PO (08:18)
[2023-05-27] MEDS: LISINOPRIL 20MG TABLET 20 MG PO (08:18)
[2023-05-27] MEDS: SPIRONOLACTONE 25MG TABLET 12.5 MG PO (08:19)
[2023-05-27] MEDS: NIFEdipine XL 30MG TABLET 60 MG PO ×2 (09:36→09:43)
[2023-05-27] MEDS: KETOROLAC 30MG/ML VIAL 15 MG IV (09:41)
--- NOTE | 2023-05-27 11:15 | EXP.DC.SUM ---
General Admission date:: 05/26/23 Discharge date: 05/27/23 HPI HPI HPI: This is 53-year-old female with a history of HTN, and anxiety presented to the ER with concerns of abdominal pain, nausea, vomiting since 8:00 this morning. Patient states she has vomited at least 20 times today. She is not sure if there may have been blood in it. Patient has a history of bleeding ulcers 10 years ago and states she had similar pain at that time. Patient states she does not drink alcohol but does use marijuana as recently as today which she states did slightly improve her pain. She is not having any bloody or black stools. Admitted for treatment Hospital Course Hospital Course Hospital Course: Patient was seen and evaluated at the bedside on the day of discharge. Patient wishes to be discharged. All patient questions were answered and patient was given time to ask questions. Patient was discharged in stable condition. Patient understands that she can return to ER in case of any sudden changes in health. Total time spent on DC - 38 mins 53-year-old female with a history of HTN, and anxiety presented to the ER with concerns of abdominal pain, nausea, vomiting since 8:00 this morning. Patient states she has vomited at least 20 times today. Patient received IV morphine, Zofran, fluids for treatment. Labs demonstrate findings of dehydration with mild prerenal azotemia, lactate borderline elevated at 2.1, no electrolyte abnormalities, patient does have elevated alkaline phosphatase but no focal right upper quadrant tenderness, normal AST and ALT, UA negative for signs of infection. Lipase normal.CT abdomen pelvis personally interpreted demonstrates no obvious obstruction, no peripancreatic fast stranding, Imaging reviewed. Patient does have a right adnexal cyst which has been persistently present. She states sometimes the cyst gives her problems but it is not giving her any issues today, she does not have any complaints of pelvic pain. Plan as follow: -Epigastric abdominal pain, likely consistent with gastritis, secondary to intractable nausea and vomiting due to cannabinoid hyperemesis syndrome - improved -Adnexal cyst: Significantly grown from previous screening. Recommended outpatient follow-up with ACUTE CARE PHYSICAL THERAPIST Hypertension: - improved, start on oral procardia xl 60 daily, HCTZ 25 BID, Lisinopril 20 daily Current smoker and marijuana use - counselled on smoking cessation Exam Data for Last 24 hours Vital signs and Labs for Last 24 Hours: Temp Pulse Resp BP Pulse Ox O2 Del Method O2 Flow Rate 98.0 F 102 H 16 152/106 H 97 Room Air 98 05/27/23 08:00 05/27/23 08:00 05/27/23 08:00 05/27/23 08:00 05/27/23 08:00 05/27/23 10:34 05/26/23 21:00 Laboratory Results - last 24 hr 05/26/23 12:55: Troponin I 0.01 I & O for Last 24 hours: Intake & Output 05/24/23 05/25/23 05/26/23 05/27/23 23:59 23:59 23:59 23:59 Intake Total 1671 / 2755 1474 / 1474 Output Total 0 / 0 Balance 1671 / 2755 1472 / 1472 Weight 55.338 kg 58.287 kg Constitutional Constitutional: no acute distress *Routine HEENT Exam Head: Present normocephalic Eye: Present EOMI and PERRL ENT: Present mucous membranes moist *Routine Neck Exam Neck: Present supple; Absent lymphadenopathy *Routine Respiratory Exam Respiratory: Present CTA bilaterally *Routine Cardiovascular Exam Cardiovascular: Present RRR *Routine Abdominal Exam Abdominal: Present soft and normoactive bowel sounds; Absent tenderness *Routine Extremities Exam Extremities: Absent cyanosis, clubbing or edema *Routine Skin Exam Skin: Present warm; Absent rash *Routine Neurological Exam Neurological: Present alert and oriented X3 Results Data Completed and Pending Labs on day of discharge: Labs from last 24 hours 05/26/23 12:55 Troponin I 0.01 DS: Diagnosis Discharge Diagnosis (1) Abdominal pain: Status: Acute Code(s): R10.9 - Unspecified abdominal pain Qualifiers: Abdominal location: upper abdomen, unspecified Qualified Code(s): R10.10 - Upper abdominal pain, unspecified (2) Nausea & vomiting: Status: Acute Code(s): R11.2 - Nausea with vomiting, unspecified Qualifiers: Vomiting type: unspecified Qualified Code(s): R11.2 - Nausea with vomiting, unspecified (3) Cannabinoid hyperemesis syndrome: Status: Acute Code(s): R11.2 - Nausea with vomiting, unspecified; F12.90 - Cannabis use, unspecified, uncomplicated (4) Adnexal cyst: Status: Acute Code(s): N94.9 - Unspecified condition associated with female genital organs and menstrual cycle (5) Hypertension: Status: Acute Code(s): I10 - Essential (primary) hypertension Qualifiers: Hypertension type: unspecified Qualified Code(s): I10 - Essential (primary) hypertension Meds Home Medications and Allergies Home Medications Medication Instructions Recorded Confirmed Type hydrochlorothiazide 25 mg tablet 25 mg PO BID 30 days #60 tabs 05/27/23 Rx hydrochlorothiazide 25 mg tablet 25 mg PO DAILY 30 days #30 tabs 05/27/23 Rx lisinopril 20 mg tablet 20 mg PO DAILY #30 tabs 05/27/23 Rx nicotine 21 mg/24 hr daily 21 mg transdermal DAILYP PRN 05/27/23 Rx transdermal patch Nicotine Cravings 30 days #30 ea nifedipine 30 mg tablet,extended 60 mg PO DAILY 30 days #60 tabs 05/27/23 Rx release 24 hr nifedipine 60 mg tablet,extended 60 mg PO DAILY #30 tabs 05/27/23 Rx release 24 hr (Procardia XL) New Prescriptions to Start Prescriptions: hydrochlorothiazide Anthony,Irfan hydrochlorothiazide Anthony,Irfan lisinopril Anthony,Irfan nicotine Anthony,Irfan nifedipine Anthony,Irfan nifedipine [Procardia XL] Anthony,Irfan Allergies Allergy/AdvReac Type Severity Reaction Status Date / Time No Known Allergies Allergy Unverified 06/14/17 09:01 Discharge Plan Disposition Patient Disposition: Home, Self-Care Condition: Good Follow up Plan Follow up with: Rodrigo Bautista MD [Staff Physician] - 06/07/23 2:30 pm Prescriptions/Medication Reconciliation: New hydrochlorothiazide 25 mg tablet 25 mg PO DAILY 30 Days Qty: 30 0RF nifedipine 30 mg Tablet Extended Release 24hr 60 mg PO DAILY 30 Days Qty: 60 0RF nicotine 21 mg/24 hr Patch 24 Hour 21 mg transdermal DAILYP PRN (Reason: Nicotine Cravings) 30 Days Qty: 30 0RF hydrochlorothiazide 25 mg tablet 25 mg PO BID 30 Days Qty: 60 0RF nifedipine [Procardia XL] 60 mg tablet extended release 24hr 60 mg PO DAILY Qty: 30 0RF lisinopril 20 mg tablet 20 mg PO DAILY Qty: 30 0RF Discontinued propranolol 20 mg Tablet 20 mg PO TID Problem Reconciliation Problems Reviewed?: Yes Patient Discharge Instructions ACTIVITY: Ambulate as tolerated DIET: continue same diet Patient Instructions: DI for Acute Abdominal Pain Providers Primary Care Provider: Marita Cruz Admit Provider: Travon Aponte Attending Provider: Marita Cruz
--- NOTE | 2023-05-29 14:13 | CARE MANAGER ---
Called and spoke with patient regarding recent discharge. She stated that she is doing better, has started all new medication, and aware of scheduled f/u appt. No concerns/questions voiced at time of call.
[2023-06-03 08:48] LABS: Renin 0.501
== END 2023-05-27 12:22 | disposition home or self-care (01) ==
LOC: ER 02:36 → ICU 02:50 → 2ND 16:16
PROVIDERS: Physician Assistant; Admitting Provider Nurse Practitioner Family; Emergency Provider Emergency Medicine; PCP Internal Medicine; Visit Provider Internal Medicine
DX: R10.10 Upper abdominal pain, unspecified (principal); F12.90 Cannabis use, unspecified, uncomplicated; R11.2 Nausea with vomiting, unspecified; I10 Essential (primary) hypertension; N94.9 Unspecified condition associated with female genital organs and menstrual cycle; F17.210 Nicotine dependence, cigarettes, uncomplicated; K29.70 Gastritis, unspecified, without bleeding
CPT/HCPCS: 36415; 74174; 74177; 80053; 81001; 82088; 83605; 83690; 83735; 84244; 84436; 84443; 84479; 84484; 85007; 85025; 85610; 93005; 93306; 99285; G0378; J1790; J2405; J3490; Q9967

== ENCOUNTER 2025-03-24 16:34 | Outpatient (CLI) | payer MEDICAID, SELFPAY ==
--- OUTSIDE RECORDS SUMMARY | 2024-10-26 04:00 | XMS_ITS ---
Author Organization [facility] Address [address] [place] [phone] Phone [phone] Care Team Providers Care Client Services Coordinator Name Role Phone Ina Marinelli Unavailable [phone] Migration, Provider Unavailable Unavailable REASON FOR VISIT EMR-Francis Encounters Encounter Location Date Provider Diagnosis [address] [address] 10/26/2024 Provider Migration Plan Of Treatment No Information Progress Notes * PATRICIA JONESDOB:1970 (55 yo F)Acc No.[id number]:10/26/2024 Patient: Nic EscobedoDAVE PATRICIA :1970 A ge:54 Y S ex:Female Address:[address] [place] [address], [phone] Subjective: * Chief Complaints: * E MR-Francis * * Date:
--- OUTSIDE RECORDS SUMMARY | 2024-10-27 04:00 | XMS_ITS ---
Author Organization [facility] Address [address] [place] [address] Phone [phone] Care Team Providers Care Gps Navigation Installer Name Role Phone Ina Marinelli Unavailable [phone] Migration, Provider Unavailable Unavailable REASON FOR VISIT EMR-Francis Medications Medication SIG (Take, Route, Frequency, Duration) Notes Start Date End Date Status Citalopram Hydrobromide 20 MG Tablet Oral 09/13/2021 Active Omeprazole 40 MG Capsule Delayed Release Oral 09/13/2021 Active amLODIPine Besylate 10 MG Tablet Oral 09/13/2021 Active busPIRone HCl 10 MG Tablet Oral 09/13/2021 Active Potassium Chloride ER 10 MEQ Tablet Extended Release Oral 09/13/2021 Active Lisinopril 10 MG Tablet Oral 09/13/2021 Active Citalopram Hydrobromide 40 MG Tablet Oral 09/13/2021 Active Propranolol HCl 20 MG Tablet Oral 09/13/2021 Active Amoxicillin-Pot Clavulanate 875-125 MG Tablet Oral 09/13/2021 Active Benzonatate 100 MG Capsule Oral 09/13/2021 Active Ibuprofen 800 MG Tablet Oral 09/13/2021 Active Social History Social History Additional Details Category Social Info Options Details Migrated Social History Migrated Social History Tobacco Years: Current every day smoker 04/28/2020,Smoking Status: 30 04/28/2020 Encounters Encounter Location Date Provider Diagnosis [address] [address] 10/27/2024 Provider Migration Plan Of Treatment No Information Progress Notes * PATRICIA JONESDOB:1970 (55 yo F)Acc No.[id number]:10/27/2024 Patient: Nic PATRICIA LICEA :1970 A ge:54 Y S ex:Female Address:[address] [place] [address], [phone] Subjective: * Chief Complaints: * E MR-Francis * Medical History: Problems: Abdominal pain Administration of SARS-CoV-2 antigen vaccine Chest pain COVID-19 Dehydration Essential hypertension Gastroesophageal reflux disease Generalized aches and pains Gynecologic examination Hypertensive disorder Hypokalemia Mixed anxiety and depressive disorder Trying to give up smoking Urinary tract infectious disease * Family History: F ather: Hypertensive disorder . M other: Hyperthyroidism , Hypertensive disorder . M aternal Grandmother: Diabetes mellitus . S ister: Hypertensive disorder . * Social History: M igrated Social History: M igrated Social History: Tobacco Years: Current every day smoker 04/28/2020,Smoking Status: 04/28/2020. * Medications: T akingbusPIRone HCl 10 MG Tablet Oral Ibuprofen 800 MG Tablet Oral Amoxicillin- Pot Clavulanate 875-125 MG Tablet Oral Benzonatate 100 MG Capsule Oral Citalopram Hydrobromide 40 MG Tablet Oral Citalopram Hydrobromide 20 MG Tablet Oral amLODIPine Besylate 10 MG Tablet Oral Omeprazole 40 MG Capsule Delayed Release Oral Potassium Chloride ER 10 MEQ Tablet Extended Release Oral Propranolol HCl 20 MG Tablet Oral Lisinopril 10 MG Tablet Oral Taking busPIRone HCl 10 MG Tablet Oral Taking Ibuprofen 800 MG Tablet Oral Taking Amoxicillin-Pot Clavulanate 875-125 MG Tablet Oral Taking Benzonatate 100 MG Capsule Oral Taking Citalopram Hydrobromide 40 MG Tablet Oral Taking Citalopram Hydrobromide 20 MG Tablet Oral Taking amLODIPine Besylate 10 MG Tablet Oral Taking Omeprazole 40 MG Capsule Delayed Release Oral Taking Potassium Chloride ER 10 MEQ Tablet Extended Release Oral Taking Propranolol HCl 20 MG Tablet Oral Taking Lisinopril 10 MG Tablet Oral * * Date:
--- OUTSIDE RECORDS SUMMARY | 2025-03-24 16:36 | XMS_ITS | Clinical Summary ---
Author Organization [facility] Address [address] [id number] Care Team Providers Care Garage Door Service Technician Name Role Phone Ina Marinelli APRN Primary Care Provider [phone] Allergies No known active allergies Medications amLODIPine (NORVASC) 5 MG tablet 08/28/2020 Active propranolol (INDERAL) 20 MG tablet 08/28/2020 Active omeprazole (priLOSEC) 40 MG capsule 08/28/2020 Active lisinopril (PRINIVIL,ZESTRI L) 2.5 MG tablet Take 2.5 mg by mouth Daily. Active Active Problems Problem Noted Date Diagnosed Date Annual SANDER MACHINE exam 05/06/2020 Overview (11/12/2020): SCREENING TESTS Year 2017 2018 2019 2019 2020 2021 2022 2023 2024 2025 2026 2027 2028 2029 2030 2031 2032 2033 2034 2035 Age 50 PAP 8 HPV high risk 8 DOT [Birads] 3[3] WHITNEY (5 year) Cuong Torresick (lifetime) Colonoscopy DEXA [T-score] Frax [hip/any] Lipids [LDL / HDL / TG] Vitamin D TSH Enter the month test was performed. If month not known, enter X' Black numbers = normal results Red numbers = abnormal results Black X = patient reported normal Red X - patient reported abnormal Referred by: Ina Marinelli APRN - PCP Profession: Other info: Family History Medical History Relation Name Comments Breast cancer Neg Hx Colon cancer Neg Hx Osteoporosis Neg Hx Ovarian cancer Neg Hx Uterine cancer Neg Hx Social History Tobacco Use Types Packs/Day Years Used Date Smoking Tobacco: Every Day Cigarettes 1 30 Smokeless Tobacco: Never Alcohol Use Standard Drinks/Week Comments Yes 0 (1 standard drink = 0.6 oz pur e alcohol) couple glasses per 1-2 weeks Abuse Screen Answer Date Recorded Unsafe at Home or Work/School Not on file Feels Threatened by Someone? Not on file 11/2022 Does Anyone Keep You from Co ntacting Others or Doint Things Outside the Home? Not on file 01/02/2023 Physical Sign of Abuse Present Not on file 1 Housing Stability Answer Date Recorded Current Living Arrangements Not on file 11/2022 Potentially Unsafe Housing Conditions Not on carrie e 01/02/2023 Family and Community Support Answer Kailash e Recorded Help with Day-to-Day Activities Not on file 01/02/2023 Lonely or Isolated Not on file 01/02/2023 Employment Answer Date Recorded Do you want help finding or keeping work or a leslee b? Not on file 01/02/2023 Disabilities Answer Date Recorded Concentrating, Remembering, or Making Decisions Difficulty Not on file 01/02/2023 Doing Errands Independently Difficulty Not on fi le 01/02/2023 Education Answer Date Recorded Help with school or training? Not on file Preferred Language Not on file 01/02/2023 Comments No Sex and Gender Information Value Date Recorded Sex Assigned at Not on file Legal Sex Female 10:23 AM EDT Gender Identity Not on file Sexual Orientation Not on file Last Filed Vital Signs Vital Sign Reading Time Taken Comments Blood Pressure 152/98 11/09/2020 3:06 PM EDT Pulse - - Temperature - - Respiratory Rate - - Oxygen Saturation - - Inhaled Oxygen Concentration - - Weight 50.8 kg (112 lb) 11/09/2020 3:06 PM EDT Height 152.4 cm (5') 11/09/2020 3:06 PM EDT Body Mass Index 21.87 11/09/2020 3:06 PM EDT Plan of Treatment Health Maintenance Due Date Last Done Comments Annual Gynecologic Pelvic and Breast Exam 1970 TDAP/TD VACCINES (1 - Tdap) 10/12/1996 10/11/1996 COLOGUARD 2016 COLON CANCER SCREENING 5 YEA R SIGMOIDOSCOPY 2016 COLONOSCOPY [address] CANCER SCREENING 2016 CT COLONOGRAPHY 2016 FECAL OCCULT BLOOD TEST 2016 FIT Testing (1 year) 2016 ANNUAL PHYSICAL 10/29/2020 HEPATITIS C SCREENING 10/29/2020 Pneumococcal Vaccine 50+ (1 of 1 - PCV) 2021 ZOSTER VACCINE (1 of 2) 2021 MAMMOGRAM 07/07/2022 07/07/2020, 06/19/2020 INFLUENZA VACCINE 10/25/2024 Procedures Procedure Name Priority Date/Time Associated Diagnosis Comments SCANNED - MAMMO 07/07/2020 from Last 3 Months or Most Recently Relevant to Health Maintenance Results * SCANNED - MAMMO (07/07/2020) Anatomical Region Laterality Modality Other us Carmelo Nance MD CHART REVIEW TABS Final Result from Last 3 Months or Most Recently Relevant to Health Maintenance Insurance PPO Care Teams Garage Door Service Technician Relationship Specialty Start Date End Date Ina Marinelli APRN [address] [place] [address] PCP - General Family Medicine 05/04/20
--- OUTSIDE RECORDS SUMMARY | 2025-03-24 16:37 | XMS_ITS | Patient Health Record ---
Author Organization [facility] Address [address] [place] [address] Phone [phone] Care Team Providers Care Paperhanger Supervisor Name Role Phone Ina Marinelli Unavailable [phone] Migration, Provider Unavailable Unavailable Reason For Referral No Information Medications Medication SIG (Take, Route, Frequency, Duration) Notes Start Date End Date Status Citalopram Hydrobromide 20 MG Tablet Oral 09/13/2021 Active Lisinopril 10 MG Tablet Oral 09/13/2021 Active Omeprazole 40 MG Capsule Delayed Release Oral 09/13/2021 Active amLODIPine Besylate 10 MG Tablet Oral 09/13/2021 Active busPIRone HCl 10 MG Tablet Oral 09/13/2021 Active Ibuprofen 800 MG Tablet Oral 09/13/2021 Active Citalopram Hydrobromide 40 MG Tablet Oral 09/13/2021 Active Propranolol HCl 20 MG Tablet Oral 09/13/2021 Active Amoxicillin-Pot Clavulanate 875-125 MG Tablet Oral 09/13/2021 Active Potassium Chloride ER 10 MEQ Tablet Extended Release Oral 09/13/2021 Active Benzonatate 100 MG Capsule Oral 09/13/2021 Active Immunizations Vaccine Route Administration Date Status Comme nts Moderna Covid-19 Vaccine 1st dose Unknown 10/02/2020 Administered Source VFC Code: V00 - VFC eligibility not determined/unknown Pfizer-Biontech Covid-19 Vaccine 1st dose Unknown 10/02/2020 History of Immunity Social History Social History Additional Details Category Social Info Options Details Migrated Social History Migrated Social History Tobacco Years: Current every day smoker 04/28/2020,Smoking Status: 30 04/28/2020 Problems Problem Type SNOMED Code ICD Code Onset Dates Problem Status W/U Status Risk Notes Problem Dehydration (81512401) Dehydration (E86.0) 07/18/19 21 Active confirmed Problem Hypokalemia (57311621) Hypokalemia (E87.6) 06/30/19 22 Active confirmed Problem Generalized anxiety disorder (04875017) Generalized anxiety disorder (F41.1) 08/06/19 22 Active confirmed Problem Anxiety disorder (042647135) Other specified anxiety disorders (F41.8) 10/17/19 22 Active confirmed Problem Essential hypertension (05758237) Essential (primary) hypertension (I10) 10/17/19 22 Active confirmed Problem Gastro-esophageal reflux disease without esophagitis (557197420) Gastro-esophageal reflux disease without esophagitis (K21.9) 10/17/19 22 Active confirmed Problem Urinary tract infectious disease (disorder) (12932558) Urinary tract infection, site not specified (N39.0) 04/28/19 21 Active confirmed Problem Cough (97984741) Cough (R05) 02/10/20 20 Active confirmed Problem Chest pain (79725808) Chest pain, unspecified (R07.9) 04/28/19 21 Active confirmed Problem Abdominal pain (06615286) Unspecified abdominal pain (R10.9) 09/14/19 22 Active confirmed Problem Pain (30966211) Pain, unspecifie d (R52) 10/29/19 22 Active confirmed Problem Gynecological examination normal (650789725705077) Encounter for gynecological examination (general) (routine) without abnormal findings (Z01.419) 04/28/19 21 Active confirmed Problem History of suspected exposure to biological agent (33822053339419) Encounter for observation for suspected exposure to other biological agents ruled out (Z03.818) 02/10/20 20 Active confirmed Problem Screening for malignant neoplasm of colon (980724271) Encounter for screening for malignant neoplasm of colon (Z12.11) 09/14/19 22 Active confirmed Problem Screening for malignant neoplasm of breast (567177131) Encounter for screening mammogram for malignant neoplasm of breast (Z12.31) 04/28/19 21 Active confirmed Problem Vaccination given (031821758) Encounter for immunization (Z23) 03/09/20 21 Active confirmed Problem Tobacco use (650704165) Tobacco use (Z72.0) 09/05/19 21 Active confirmed Problem Repeated prescription (267474355) Encounter for issue of repeat prescription (Z76.0) 03/09/20 21 Active confirmed Problem COVID-19 (481527359) COVID-19 (U07.1) 04/13/19 22 Active confirmed Problem Encounter for screening for COVID-19 (Z11.52) 04/13/19 22 Active confirmed Encounters Encounter Location Date Provider Diagnosis [facility] [address] [place] [address] 10/26/2024 Provider Migration [facility] [address] [place] [address] 10/27/2024 Provider Migration Plan Of Treatment No Information Insurance Providers Payer Name Payer Address Payer Phone Subscriber Number Group Number Insured Name Patient Relationship to Insured Coverage Start Date Coverage End Date [employer] [address] [place] [phone] [id number] PATRICIA JONES Self - patient is the insured
--- NOTE | 2025-03-24 16:41 | MR_ITS ---
PROCEDURE INFORMATION: Exam: MR Left Upper Extremity Joint Without Contrast; Shoulder Exam date and time: 03/24/2025 4:52 PM Age: 55 years old Clinical indication: Pain; Shoulder; Left; Lrom x few months, no known injury; Additional info: Left shoulder pain TECHNIQUE: Imaging protocol: Magnetic resonance imaging of the left upper extremity without contrast. Exam focused on the shoulder. COMPARISON: No relevant prior studies available. FINDINGS: Bones/joints: Modified Outerbridge Classification Grade 3 chondromalacia of the glenohumeral joint: partial-thickness cartilage loss with focal ulcerations. There is mild acromioclavicular osteoarthritis. There is a type 1, flat acromion process. There are small marginal osteophytes of the glenohumeral joint. Glenoid labrum: The glenoid labrum is unremarkable. Supraspinatus tendon: Insertional tendinopathy of the supraspinatus tendon with mild interstitial tearing, series 5, image 19. Infraspinatus tendon: Mild insertional tendinopathy of the anterior fibers of the infraspinatus tendon. Subscapularis tendon: Insertional tendinopathy of the subscapularis tendon. Partial-thickness tear of the deep fibers, superior 3rd of the subscapularis, series 3, image 12 involving less than 50% of the tendon thickness. Teres minor tendon: The teres minor tendon is unremarkable. No evidence of tear. Tendon of biceps brachii: The long bicipital tendon is unremarkable. Coracohumeral ligament: The coracohumeral ligament is unremarkable. Glenohumeral ligaments: Unremarkable. Soft tissues: There is Goutallier classification Grade 1 fatty atrophy of the subscapularis muscle: Fatty infiltration is present, but muscle is still predominantly muscular. IMPRESSION: 1. Insertional tendinopathy of the supraspinatus tendon with mild interstitial tearing, involving less than 50% of the tendon thickness, series 5, image 19. 2. Mild insertional tendinopathy of the anterior fibers of the infraspinatus tendon. 3. Insertional tendinopathy of the subscapularis tendon. Partial-thickness tear of the deep fibers, superior 3rd of the subscapularis, series 3, image 12 involving less than 50% of the tendon thickness.
== END 2025-03-24 23:59 | disposition home or self-care (01) ==
LOC: RAD 16:35
PROVIDERS: PCP Nurse Practitioner; Visit Provider Nurse Practitioner
DX: M75.82 Other shoulder lesions, left shoulder (principal); M19.012 Primary osteoarthritis, left shoulder
CPT/HCPCS: 73221